=== PATIENT | male | born 1980 | race Caucasian/White ===

== ENCOUNTER 2019-10-03 07:50 | Emergency (ER) | payer BC, OTHER ==
[~2019-10-03 07:50] MED LIST: IPRATROPIUM BROM 0.5MG/2.5ML ONE
--- NOTE | 2019-10-03 09:09 | RAD REPORT ---
EXAM DESCRIPTION: RAD - Chest Single View - 10/03/2019 9:01 am CLINICAL HISTORY: r/o pneumonia Chest pain. COMPARISON: CHEST SINGLE VIEW dated 06/01/2013; CT HEAD SPINE CAP W CONTRAST dated 06/01/2013 FINDINGS: Portable technique limits examination quality. Reduced right lung volume with haziness and she would the cardiomediastinal structures to the right i s again seen, chronic in appearance. No definitive acute infiltrate identified. The heart is normal i n size. No displaced fractures.
--- NOTE | 2019-10-03 09:34 | EDPHYS ---
Physician Documentation [facility] Name: Dino Quintana Age: 38 yrs Sex: Male : 1980 Arrival Date: 10/03/2019 Time: 07:54 Bed 6 Private MD: ED Physician Jose Negrete HPI: 10/02 08:09 This 38 yrs old Male presents to ER via Ambulatory with complaints of cp Anxiety, r/o covid. 08:10 The patient or guardian reports cough, that is intermittent, with productive sputum. cp 08:10 Onset: The symptoms/episode began/occurred 1.5 week(s) ago. Associated signs and cp symptoms: Pertinent positives: fever, sore throat, shortness of breath. Severity of symptoms: in the emergency department the symptoms are unchanged despite home interventions. Patient reports another employee at work recently tested positive for COVID-19. Historical: - Allergies: 07:55 No Known Allergies; aa5 - Home Meds: 07:55 Suboxone sublingual sublingual [Active]; Ambien Oral [Active]; Zoloft Oral [Active]; aa5 - PMHx: 07:55 Hypertension; Anxiety; Depression; aa5 - PSHx: 07:55 Tonsillectomy; Hernia repair; Heart sx as an infant; aa5 - Immunization history:: Adult Immunizations unknown. - Social history:: Smoking status: Patient reports the use of cigarette tobacco products, unknown amount. ROS: 08:15 Constitutional: Negative for body aches, chills, fever, poor PO intake. cp 08:15 Eyes: Negative for injury, pain, redness, and discharge. cp 08:15 ENT: Positive for sore throat, Negative for drainage from ear(s), ear pain, difficulty swallowing, difficulty handling secretions. 08:15 Cardiovascular: Negative for chest pain, edema, palpitations. 08:15 Respiratory: Positive for cough, shortness of breath, Negative for wheezing. 08:15 Abdomen/GI: Negative for abdominal pain, diarrhea, constipation, active vomiting. 08:15 Skin: Negative for rash. 08:15 Neuro: Positive for headache, Negative for altered mental status, weakness. Exam: 08:25 Head/Face: Normocephalic, atraumatic. cp 08:25 Constitutional: The patient appears in no acute distress, alert, awake, non-diaphoretic, non-toxic, well developed, well nourished. 08:25 Eyes: Periorbital structures: appear normal, Conjunctiva: normal, no exudate, no injection, Lids and lashes: appear normal, bilaterally. 08:25 ENT: External ear(s): are unremarkable, Ear canal(s): are normal, clear, TM's: bulging, is not appreciated, bilaterally, dullness, bilaterally, erythema, is not appreciated, bilaterally, Nose: is normal, Mouth: Lips: moist, Oral mucosa: moist, Posterior pharynx: Airway: no evidence of obstruction, patent, Tonsils: no enlargement, no exudate, swelling, is not appreciated, erythema, that is mild. 08:25 Neck: ROM/movement: Meningeal signs: are not present, nuchal rigidity, is not appreciated, Lymph nodes: no appreciated lymphadenopathy. 08:25 Chest/axilla: Inspection: normal, Palpation: is normal, no crepitus, no tenderness. 08:25 Cardiovascular: Rate: normal, Rhythm: regular, Edema: is not appreciated, JVD: is not appreciated. 08:25 Respiratory: the patient does not display signs of respiratory distress, Respirations: normal, no use of accessory muscles, no retractions, no splinting, no tachypnea, labored breathing, is not present, Breath sounds: decreased breath sounds, are not appreciated, stridor, is not appreciated, + upper airway congestion. wheezing: is not appreciated. 08:25 Abdomen/GI: Exam negative for discomfort, distension, guarding, Inspection: abdomen appears normal. 08:25 Skin: no rash present. Vital Signs: 07:55 BP 127 / 73; Pulse 72; Resp 16 S; Temp 98.3(O); Pulse Ox 95% on R/A; Weight 113.4 kg aa5 (R); Height 5 ft. 11 in. (180.34 cm) (R); Pain 3/10; 09:39 BP 130 / 59; Pulse 61; Resp 17; Temp 98.5; Pulse Ox 98% ; bp 07:55 Body Mass Index 34.87 (113.40 kg, 180.34 cm) aa5 MDM: 08:08 Patient medically screened. 09:33 Data reviewed: vital signs, nurses notes, lab test result(s), radiologic studies, plain cp films, and as a result, I will discharge patient. 09:33 Counseling: I had a detailed discussion with the patient and/or guardian regarding: the cp historical points, exam findings, and any diagnostic results supporting the discharge/admit diagnosis, lab results, radiology results, to return to the emergency department if symptoms worsen or persist or if there are any questions or concerns that arise at home. 10/02 08:09 Order name: COVID-19 cp 10/02 08:09 Order name: Flu; Complete Time: 09:32 cp 10/02 08:09 Order name: Strep; Complete Time: 09:32 cp 10/02 08:18 Order name: Chest Single View; Complete Time: 09:32 EDMS 10/02 08:40 Order name: Throat Culture EDMS 10/02 08:09 Order name: Document PUI#; Complete Time: 08:43 cp 10/02 08:09 Order name: Droplet/Contact Precautions; Complete Time: 08:11 cp 10/02 08:09 Order name: Labs collected and sent; Complete Time: 08:21 cp 10/02 08:09 Order name: Notify Health Dept [id number]/ ; Complete Time: 08:43 cp 10/02 08:09 Order name: O2 Per Protocol; Complete Time: 08:10 cp Administered Medications: No medications were administered Disposition: 10:02 Co-signature as Attending Physician, Jose Negrete MD I agree with the assessment and kdr plan of care. Disposition: 10/03/19 09:33 Discharged to Home. Impression: Acute bronchitis. - Condition is Stable. - Discharge Instructions: Acute Bronchitis, Adult. - Prescriptions for Tessalon Perles 100 mg Oral Capsule - take 2 capsule by ORAL route every 8 hours As needed; 30 capsule. Zithromax Z- Liam 250 mg Oral Tablet - take 1 tablet by ORAL route as directed for 5 days Day 1 - take two (2) tablets one time. Day 2, 3, 4 , 5 take one (1) tablet once daily.; 6 tablet. Albuterol Sulfate 90 mcg/actuation - inhale 1-2 puff by INHALATION route every 4-6 hours; 1 Inhaler. - Work release form, Medication Reconciliation Form, Thank You Letter, Antibiotic Education, Prescription Opioid Use form. - Follow up: Private Physician; When: 2 - 3 days; Reason: Worsening of condition. - Problem is new. - Symptoms have improved. Signatures: Dispatcher [employer] [facility] Jose Negrete MD MD kdr Jacque Polo, RN RN aa5 Delon Jara PA PA cp Peltier, Brian, RN RN bp Corrections: (The following items were deleted from the chart) 08:56 08:27 Chest Single View+RAD.RAD.BRZ ordered. [facility] 09:47 09:33 10/03/2019 09:33 Discharged to Home. Impression: Acute bronchitis. Condition is aa5 Stable. Forms are Medication Reconciliation Form, Thank You Letter, Antibiotic Education, Prescription Opioid Use. Follow up: Private Physician; When: 2 - 3 days; Reason: Worsening of condition. Problem is new. Symptoms have improved. cp
--- NOTE | 2019-10-03 09:34 | ER ---
Nurse's Notes [facility] Name: Dino Quintana Age: 38 yrs Sex: Male : 1980 Arrival Date: 10/03/2019 Time: 07:54 Bed 6 Private MD: Diagnosis: Acute bronchitis Presentation: 10/02 07:55 Chief complaint: Patient states: slight cough, SOB, headache, and fatigue x 1 week ago. aa5 Pt states "I wake up every morning gasping for air and I've been vomiting in the mornings". Pt states "I've been having more panic attacks". 07:55 Coronavirus screen: Surgical mask placed on patient. Patient moved to private room, aa5 placed in contact and droplet isolation with eye protection until further assessment. Patient reports a cough. Patient reports shortness of breath or difficulty breathing. Patient denies measured and/or subjective temperature greater than 100.4F prior to today's visit. Patient denies travel on a cruise ship or to a country the [facility] currently lists as an affected area. Patient denies contact with known and/or suspected case of COVID-19. Ebola Screen: Patient negative for fever greater than or equal to 101.5 degrees Fahrenheit, and additional compatible Ebola Virus Disease symptoms. Initial Sepsis Screen: Does the patient meet any 2 criteria? No. Patient's initial sepsis screen is negative. Does the patient have a suspected source of infection? No. Patient's initial sepsis screen is negative. Risk Assessment: Do you want to hurt yourself or someone else? Patient reports no desire to harm self or others. Onset of symptoms was September 2019. 07:55 Acuity: CECILIA 3 aa5 07:55 Method Of Arrival: Ambulatory aa5 Triage Assessment: 08:01 General: Appears in no apparent distress. uncomfortable, obese, Behavior is bp cooperative, appropriate for age, anxious. Pain: Denies pain. EENT: No deficits noted. Neuro: No deficits noted. Cardiovascular: No deficits noted. Respiratory: Reports cough that is. GI: No signs and/or symptoms were reported involving the gastrointestinal system. : No signs and/or symptoms were reported regarding the genitourinary system. Derm: No deficits noted. Musculoskeletal: No deficits noted. Historical: - Allergies: 07:55 No Known Allergies; aa5 - Home Meds: 07:55 Suboxone sublingual sublingual [Active]; Ambien Oral [Active]; Zoloft Oral [Active]; aa5 - PMHx: 07:55 Hypertension; Anxiety; Depression; aa5 - PSHx: 07:55 Tonsillectomy; Hernia repair; Heart sx as an ; aa5 - Immunization history:: Adult Immunizations unknown. - Social history:: Smoking status: Patient reports the use of cigarette tobacco products, unknown amount. Screenin:02 Abuse screen: Denies threats or abuse. Denies injuries from another. Nutritional bp screening: No deficits noted. Tuberculosis screening: No symptoms or risk factors identified. Fall Risk None identified. Assessment: 08:02 General: SEE TRIAGE NOTE. bp 09:45 Reassessment: Patient is alert, oriented x 3, equal unlabored respirations, skin aa5 warm/dry/pink. 11:39 Reassessment: I#[id number]. aa5 Vital Signs: 07:55 BP 127 / 73; Pulse 72; Resp 16 S; Temp 98.3(O); Pulse Ox 95% on R/A; Weight 113.4 kg aa5 (R); Height 5 ft. 11 in. (180.34 cm) (R); Pain 3/10; 09:39 BP 130 / 59; Pulse 61; Resp 17; Temp 98.5; Pulse Ox 98% ; bp 07:55 Body Mass Index 34.87 (113.40 kg, 180.34 cm) aa5 ED Course: 07:54 Patient arrived in ED. as 07:56 Delon Jara PA is PHCP. cp 07:56 Jose Negrete MD is Attending Physician. cp 07:59 Jaspreet Hi, ASMITA is Primary Nurse. bp 08:01 Arm band placed on. bp 08:02 Patient has correct armband on for positive identification. Bed in low position. Call bp light in reach. Side rails up X2. 08:06 Triage completed. aa5 08:31 Covid-19 swab, flu and strep swab walked to lab. em1 09:02 Chest Single View In Process Unspecified. EDMS 09:45 No provider procedures requiring assistance completed. Patient did not have IV access aa5 during this emergency room visit. Administered Medications: No medications were administered Outcome: 09:33 Discharge ordered by . cp 09:45 Discharged to home ambulatory. aa5 09:45 Condition: stable 09:45 Discharge instructions given to patient, Instructed on discharge instructions, follow up and referral plans. medication usage, Demonstrated understanding of instructions, follow-up care, medications, Prescriptions given X 3. 09:47 Patient left the ED. aa5 Addendum: 10/04/2019 18:06 Addendum: Other pt notified of negative COVID-19 swab results. d m5 Signatures: Dispatcher [employer] Lynne Angel, RN RN Isabel Stoddard Eric em1 Jacque Polo, RN RN aa5 Delon Jara PA PA Jaspreet Mccoy, RN RN bp
[2019-10-03 09:55] VITALS: BP 130/59; TEMP 98.5; O2SAT 98
== END 2019-10-03 09:47 | disposition home or self-care (01) ==
LOC: ER 07:50
DX: J20.9 Acute bronchitis, unspecified (principal); Z20.828 Contact with and (suspected) exposure to other viral communicable diseases; I10 Essential (primary) hypertension; F34.1 Dysthymic disorder; Z88.5 Allergy status to narcotic agent; Z72.0 Tobacco use
CPT/HCPCS: 71045; 87070; 87081; 87804; 99283

== ENCOUNTER 2019-10-12 20:06 | Emergency (ER) | payer BC, OTHER ==
--- OUTSIDE RECORDS SUMMARY | 2019-10-12 20:09 | XMS REPORT | Continuity of Care Document ---
:1980 Author Organization [facility] t Address [address] [place] [address] [address] [place] [address] Care Team Providers Name Role Phone Unavailable Unavailable Unavailable Problems This patient has no known problems. Allergies, Adverse Reactions, Alerts This patient has no known allergies or adverse reactions. Medications This patient has no known medications. Procedures This patient has no known procedures. Results This patient has no known results.
[2019-10-12] MEDS ORDERED: FAMOTIDINE 20 MG/2 ML VIAL IV ONE (21:37)
[2019-10-12] MEDS ORDERED: ONDANSETRON 4 MG/2 ML VIAL ONE (21:37)
[2019-10-12] MEDS ORDERED: NA CHLORIDE 0.9% 1,000 ML ONE (21:37)
[2019-10-12 21:56] LABS: Absolute Lymphocytes (CBC) 1.6 K/uL (0.7-4.9); Basophils % 0.5 % (0-1.3); Hematocrit 46.9 % (39.6-49.0); Lymphocytes % 15.6 % (15.3-44.8); MPV 7.8 fL (7.6-11.3)
[2019-10-12 22:13] LABS: ALT/SGPT 92 U/L (12-78); AST/SGOT 48 U/L (15-37); Albumin 3.5 g/dL (3.4-5.0); Alkaline Phosphatase 58 U/L (45-117); BUN Blood Urea Nitrogen 6 mg/dL (7-18); Bicarbonate 26 mmol/L (21-32); Bilirubin Direct 0.5 mg/dL (0-0.2); Bilirubin Total 1.1 mg/dL (0.2-1.0); Glucose Level 91 mg/dL (74-106); Lipase 62 U/L (73-393); Potassium 4.2 mmol/L (3.5-5.1); Protein, Total 6.7 g/dL (6.4-8.2); Sodium Level 141 mmol/L (136-145)
--- NOTE | 2019-10-12 23:34 | ER ---
Nurse's Notes [facility] Name: Dino Quintana Age: 38 yrs Sex: Male : 1980 Arrival Date: 10/12/2019 Time: 20:03 Bed 16 Private MD: Diagnosis: Nausea and vomiting;Upper abdominal pain, unspecified Presentation: 10/11 20:04 Chief complaint: EMS states: pt reports he stopped taking Zoloft 100 mg approx 30 days sg ago because he was prescribed Zofran which he believed was a replacement medication. Resumed Zoloft today and is now experiencing N/V at and feeling sweaty at this time. Coronavirus screen: Proceed with normal triage. Ebola Screen: Patient negative for fever greater than or equal to 101.5 degrees Fahrenheit, and additional compatible Ebola Virus Disease symptoms Patient denies exposure to infectious person. Patient denies travel to an Ebola-affected area in the 21 days before illness onset. No symptoms or risks identified at this time. Initial Sepsis Screen: Does the patient meet any 2 criteria? No. Patient's initial sepsis screen is negative. Does the patient have a suspected source of infection? No. Patient's initial sepsis screen is negative. Risk Assessment: Do you want to hurt yourself or someone else? Patient reports no desire to harm self or others. Onset of symptoms was October 12, 2019. Care prior to arrival: None. Transition of care: patient was not received from another setting of care. 20:04 Method Of Arrival: EMS: [facility] 20:04 Acuity: CECILIA 3 sg Historical: - Allergies: 20:15 No Known Allergies; sg - Home Meds: 20:13 Zoloft Oral [Active]; Suboxone sublingual [Active]; Ambien Oral [Active]; sg - PMHx: 20:13 Anxiety; Depression; Hypertension; sg - PSHx: 20:13 Tonsillectomy; Hernia repair; Heart sx as an ; sg - Immunization history:: Adult Immunizations up to date. - Social history:: Smoking status: Patient denies any tobacco usage or history of. Screenin:04 Abuse screen: Denies threats or abuse. Denies injuries from another. Nutritional ls4 screening: No deficits noted. Tuberculosis screening: No symptoms or risk factors identified. Fall Risk None identified. Assessment: 20:10 General: Appears in no apparent distress. uncomfortable, Behavior is anxious, flat. ls4 20:10 Pain: Denies pain. Neuro: No deficits noted. Cardiovascular: No deficits noted. ls4 Respiratory: No deficits noted. Denies cough, shortness of breath labored breathing. GI: Abdomen is non-distended, obese, Bowel sounds present X 4 quads. Abd is soft and non tender X 4 quads. Reports nausea, vomiting, since 12 pm. pt restarted zoloft after not taking it for 30 days Patient currently denies. : No deficits noted. No signs and/or symptoms were reported regarding the genitourinary system. EENT: No deficits noted. No signs and/or symptoms were reported regarding the EENT system. Derm: No deficits noted. No signs and/or symptoms reported regarding the dermatologic system. Musculoskeletal: No deficits noted. No signs and/or symptoms reported regarding the musculoskeletal system. 22:00 Reassessment: Patient appears in no apparent distress at this time. Patient and/or ls4 family updated on plan of care and expected duration. Pain level reassessed. Patient is alert, oriented x 3, equal unlabored respirations, skin warm/dry/pink. 10/12 00:22 Reassessment: Patient appears in no apparent distress at this time. Patient and/or ls4 family updated on plan of care and expected duration. Pain level reassessed. Patient is alert, oriented x 3, equal unlabored respirations, skin warm/dry/pink. Patient states feeling better. Vital Signs: 10/11 20:04 BP 139 / 83; Pulse 72; Resp 16; Temp 98.4(O); Pulse Ox 99% on R/A; Pain 3/10; ls4 21:10 BP 112 / 69; Pulse 70; Resp 14; Temp 98.3(O); Pulse Ox 99% on R/A; Pain 3/10; ls4 23:00 BP 126 / 91; Pulse 67; Resp 16; Pulse Ox 99% on R/A; Pain 3/10; ls4 10/12 00:23 BP 140 / 83; Pulse 81; Resp 16; Pulse Ox 99% on R/A; Pain 3/10; ls4 ED Course: 10/11 20:03 Patient arrived in ED. sg 20:04 Patient has correct armband on for positive identification. Bed in low position. Call ls4 light in reach. Side rails up X 1. Pulse ox on. NIBP on. Warm blanket given. Diet: Patient is NPO. 20:06 Triage completed. sg 20:06 Delon Jara PA is PHCP. cp 20:06 Akil Jones MD is Attending Physician. cp 20:06 Arm band placed on. sg 21:08 Candelaria Msea RN is Primary Nurse. ls4 21:34 No provider procedures requiring assistance completed. ls4 21:34 Initial lab(s) drawn, by fl, sent to lab. Inserted saline lock: 18 gauge in left upper ls4 arm, using aseptic technique. Patient maintains SpO2 saturation greater than 95% on room air. 22:46 CT Abd/Pelvis - IV Contrast Only In Process Unspecified. EDMS 10/12 00:24 IV discontinued, intact, bleeding controlled, No redness/swelling at site. ls4 Administered Medications: 10/11 21:44 Drug: Pepcid 20 mg Route: IVP; Site: left forearm; ls4 22:15 Follow up: Response: No adverse reaction; Marked relief of symptoms ls4 21:44 Drug: Zofran (Ondansetron) 4 mg Route: IVP; Site: left upper arm; ls4 22:15 Follow up: Response: No adverse reaction; Marked relief of symptoms ls4 21:44 Drug: NS 0.9% 1000 ml Route: IV; Rate: 1 bolus; Site: left upper arm; ls4 22:44 Follow up: IV Status: Completed infusion; IV Intake: 1000ml ls4 10/12 00:21 Drug: Zofran (Ondansetron) 4 mg Route: IVP; Site: left upper arm; ls4 00:22 Follow up: Response: No adverse reaction; Marked relief of symptoms ls4 Intake: 10/11 22:44 IV: 1000ml; Total: 1000ml. ls4 Outcome: 23:33 Discharge ordered by . cp 10/12 00:24 Discharged to home ambulatory. ls4 Condition: stable Discharge instructions given to patient, Instructed on discharge instructions, follow up and referral plans. medication usage, Demonstrated understanding of instructions, follow-up care, medications, Prescriptions given X 2. 00:25 Patient left the ED. ls4 Signatures: Dispatcher [employer] EDMS Juanjose Gomez, RN RN sg Delon Jara PA PA cp Stewart, Lisa, RN RN ls4 Corrections: (The following items were deleted from the chart) 10/11 23:00 20:04 BP 139 / 83; Pulse 72bpm; Resp 16bpm; Pulse Ox 99% RA; Pain 3/10; ls4 ls4
--- NOTE | 2019-10-12 23:34 | EDPHYS ---
Physician Documentation [facility] Name: Dino Quintana Age: 38 yrs Sex: Male : 1980 Arrival Date: 10/12/2019 Time: 20:03 Bed 16 Private MD: ED Physician Akil Jones HPI: 10/11 21:20 This 38 yrs old Male presents to ER via EMS with complaints of cp Nausea/Vomiting. 21:20 The patient presents to the emergency department with nausea, with "dry heaves", cp vomiting, that is intermittent. Onset: The symptoms/episode began/occurred today. Historical: - Allergies: 20:15 No Known Allergies; sg - Home Meds: 20:13 Zoloft Oral [Active]; Suboxone sublingual [Active]; Ambien Oral [Active]; sg - PMHx: 20:13 Anxiety; Depression; Hypertension; sg - PSHx: 20:13 Tonsillectomy; Hernia repair; Heart sx as an ; sg - Immunization history:: Adult Immunizations up to date. - Social history:: Smoking status: Patient denies any tobacco usage or history of. ROS: 21:30 Constitutional: Negative for body aches, chills, fever. cp 21:30 Eyes: Negative for injury, pain, redness, and discharge. cp 21:30 ENT: Negative for ear pain, sore throat, difficulty swallowing, difficulty handling secretions. 21:30 Cardiovascular: Negative for chest pain, palpitations. 21:30 Respiratory: Negative for cough, shortness of breath, wheezing. 21:30 Abdomen/GI: Positive for abdominal pain, nausea and vomiting, Negative for diarrhea, constipation, black/tarry stool, rectal bleeding. 21:30 Back: Negative for radiated pain. 21:30 : Negative for urinary symptoms. 21:30 Neuro: Negative for altered mental status, headache, weakness. 21:30 All other systems are negative. Exam: 21:35 Constitutional: The patient appears in no acute distress, alert, awake, non-toxic, well cp developed, well nourished. 21:35 Head/Face: Normocephalic, atraumatic. cp 21:35 Eyes: Periorbital structures: appear normal, Conjunctiva: normal, no exudate, no injection, Sclera: no appreciated abnormality, Lids and lashes: appear normal, bilaterally. 21:35 ENT: External ear(s): are unremarkable, Nose: is normal, Mouth: is normal, Posterior pharynx: is normal, airway is patent, no erythema, no exudate. 21:35 Chest/axilla: Inspection: normal, Palpation: is normal, no crepitus, no tenderness. 21:35 Cardiovascular: Rate: normal, Rhythm: regular. 21:35 Respiratory: the patient does not display signs of respiratory distress, Respirations: normal, no use of accessory muscles, no retractions, labored breathing, is not present, Breath sounds: are clear throughout, no decreased breath sounds, no stridor, no wheezing. 21:35 Abdomen/GI: Inspection: abdomen appears normal, Bowel sounds: active, all quadrants, Palpation: soft, in all quadrants, moderate abdominal tenderness, in the right upper quadrant and left upper quadrant, rebound tenderness, is not appreciated, involuntary guarding, is not appreciated. 21:35 Back: CVA tenderness, is absent. Vital Signs: 20:04 BP 139 / 83; Pulse 72; Resp 16; Temp 98.4(O); Pulse Ox 99% on R/A; Pain 3/10; ls4 21:10 BP 112 / 69; Pulse 70; Resp 14; Temp 98.3(O); Pulse Ox 99% on R/A; Pain 3/10; ls4 23:00 BP 126 / 91; Pulse 67; Resp 16; Pulse Ox 99% on R/A; Pain 3/10; ls4 10/12 00:23 BP 140 / 83; Pulse 81; Resp 16; Pulse Ox 99% on R/A; Pain 3/10; ls4 MDM: 10/11 20:27 Patient medically screened. cp 21:45 Differential diagnosis: Nonspecific abd pain, gastritis, cholecystitis, pancreatitis, cp appendicitis, viral gastroenteritis, gastroenteritis. 23:30 Data reviewed: vital signs, nurses notes, lab test result(s), radiologic studies, CT cp scan. 10/11 21:11 Order name: Basic Metabolic Panel; Complete Time: 22:16 cp 10/11 21:11 Order name: CBC with Diff; Complete Time: 22:16 cp 10/11 21:11 Order name: Hepatic Function; Complete Time: 22:16 cp 10/11 22:17 Interpretation: Normal except: AST 48; ALT 92; BILIT 1.1; BILID 0.5. 10/11 21:11 Order name: Lipase; Complete Time: 22:16 cp 10/11 22:17 Interpretation: LIP 62; Reviewed. 10/11 21:36 Order name: CT Abd/Pelvis - IV Contrast Only 10/11 21:11 Order name: IV Saline Lock; Complete Time: 22:50 cp 10/11 21:11 Order name: Labs collected and sent; Complete Time: 22:50 cp 10/11 23:21 Order name: PO challenge; Complete Time: 23:41 cp Administered Medications: 21:44 Drug: Pepcid 20 mg Route: IVP; Site: left forearm; ls4 22:15 Follow up: Response: No adverse reaction; Marked relief of symptoms ls4 21:44 Drug: Zofran (Ondansetron) 4 mg Route: IVP; Site: left upper arm; ls4 22:15 Follow up: Response: No adverse reaction; Marked relief of symptoms ls4 21:44 Drug: NS 0.9% 1000 ml Route: IV; Rate: 1 bolus; Site: left upper arm; ls4 22:44 Follow up: IV Status: Completed infusion; IV Intake: 1000ml ls4 10/12 00:21 Drug: Zofran (Ondansetron) 4 mg Route: IVP; Site: left upper arm; ls4 00:22 Follow up: Response: No adverse reaction; Marked relief of symptoms ls4 Disposition: 02:28 Co-signature as Attending Physician, Akil Jones MD. ma2 Disposition: 10/12/19 23:33 Discharged to Home. Impression: Nausea and vomiting, Upper abdominal pain, unspecified. - Condition is Stable. - Discharge Instructions: Abdominal Pain, Adult, Nausea and Vomiting, Adult. - Prescriptions for Bentyl 20 mg Oral Tablet - take 1 tablet by ORAL route every 6 hours As needed; 20 tablet. promethazine 25 mg Oral Tablet - take 1 tablet by ORAL route every 6 hours As needed; 20 tablet. - Medication Reconciliation Form, Thank You Letter, Antibiotic Education, Prescription Opioid Use form. - Follow up: Private Physician; When: 2 - 3 days; Reason: Worsening of condition, Recheck today's complaints. - Problem is new. - Symptoms have improved. Signatures: Dispatcher [employer] EDJuanjose Hendricks, RN RN sg Delon Jara PA PA Akil Nur MD MD ma2 Candelaria Mesa RN RN ls4 Corrections: (The following items were deleted from the chart) 00:25 10/11 23:33 10/12/2019 23:33 Discharged to Home. Impression: Nausea and vomiting; Upper ls4 abdominal pain, unspecified. Condition is Stable. Forms are Medication Reconciliation Form, Thank You Letter, Antibiotic Education, Prescription Opioid Use. Follow up: Private Physician; When: 2 - 3 days; Reason: Worsening of condition, Recheck today's complaints. Problem is new. Symptoms have improved. cp
[2019-10-13] MEDS ORDERED: ONDANSETRON 4 MG/2 ML VIAL ONE (00:11)
[2019-10-13 01:50] VITALS: BP 140/83; TEMP 98.3; O2SAT 99
--- NOTE | 2019-10-13 11:02 | RAD REPORT ---
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 Electronically signed by: Pamela Conte MD 10/12/2019 11:36 PM CDT End of Addendum EXAM DESCRIPTION: CT Abdomen Pelvis W Contrast CLINICAL HISTORY: 38 years Male Abd pain; Nausea / vomiting TECHNIQUE: Contiguous axial images obtained through the abdomen and pelvis following intravenous con trast administration. Coronal and sagittal reformatted images provided. This CT exam was performed according to our departmental dose-optimization program, which includes on e or more of the following dose reduction techniques: automated exposure control, adjustment of the m A and/or kV according to patient size, and/or use of iterative reconstruction technique. COMPARISON: 06/01/2013. FINDINGS: Again seen is volume loss in the right hemithorax with mediastinal shift to the right. Pat zoraida infiltrates and mild bronchiectasis at the right lung base. The liver, biliary tree, gallbladder, pancreas, spleen, adrenal glands, left kidney, and urinary blad chester demonstrate no acute findings. Small right renal cyst. 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 There is no bowel inflammation, obstruction, free intraperitoneal air, or ascites. The appendix is no rmal. IMPRESSION: No acute abdominal or pelvic abnormalities. Again seen is chronic volume loss in the right hemithorax with patchy infiltrates and mild bronchiect asis of the right lung base. 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 Electronically signed by: Pamela Conte MD 10/12/2019 11:10 PM CDT Due to temporary technical issues with the PACS/Fluency reporting system, reports are being signed by the in house radiologist without review as a courtesy to ensure prompt reporting. The interpreting r adiologist is fully responsible for the content of the report.
== END 2019-10-13 00:25 | disposition home or self-care (01) ==
LOC: ER 20:06
DX: R10.10 Upper abdominal pain, unspecified (principal); I10 Essential (primary) hypertension; F34.1 Dysthymic disorder
CPT/HCPCS: 96361; 85025; 80048; 36415; 80076; 83690; 74177; 96375; 96374; 99285; Q9967; J7030; J2405 ×2